=== PATIENT | female | born 1985 | race Caucasian/White ===

== ENCOUNTER 2019-06-21 13:06 | Emergency (ER) | payer SELFPAY ==
[2019-06-21] MEDS ORDERED: ACETAMINOPHEN 500 MG TABLET (FP) PO ONE (13:11)
--- NOTE | 2019-06-21 13:11 | PDOC ---
Rapid Medical Evaluation Time Seen by Provider: 06/21/19 13:09 Medical Evaluation: 06/21/19 13:10 HPI: Headache PE:No gross deficits ORDERS: U Preg Tylenol Discharge Disposition - Diagnosis Headache - Referrals - Patient Instructions - Post Discharge Activity
[2019-06-21 13:13] VITALS: TEMP 97.5; BMI 23.6
[2019-06-21] MEDS ORDERED: ACETAMINOPHEN 325 MG TABLET (FP) ONE (13:22)
--- NOTE | 2019-06-21 13:27 | PDOC ---
Attending Attestation - Resident Resident Name: PapitoRamya - ED Attending Attestation I have performed the following: I have examined & evaluated the patient, The case was reviewed & discussed with the resident, I agree w/resident's findings & plan, Exceptions are as noted - HPI HPI: 06/21/19 13:51 Ms Galvan is a 34-year-old female who is otherwise healthy who presents emergency department with right-sided headache Patient states she was in her usual state of health Had a gradual onset of a right-sided headache last night Patient fell asleep last night, but awoke with worsening of her headache Patient did not take any pain medication No fevers or chills No head trauma Patient feels nauseous no vomiting (+) Photophobia Patient has a history of similar headache several years ago, status post imaging , unable to give details about the - Physicial Exam PE: 06/21/19 14:04 GENERAL: The patient is in no acute distress, appears uncomfortable, crying. HEENT: Right eye appears swollen to me, 20/20 Bilaterally, no temporal tenderness to palpation, Ears normal, nares patent, oropharynx clear without exudates. Moist mucous membranes. NECK: Normal range of motion, supple, no nuchal rigidity LUNGS: Breath sounds equal, clear to auscultation bilaterally. No wheezes, and no crackles. HEART:Regular rate and rhythm, normal S1 and S2 without murmur, rub or gallop. ABDOMEN: Soft, nontender, normoactive bowel sounds. EXTREMITIES: Normal range of motion, no edema. NEUROLOGICAL: Cranial nerves II through XII grossly intact. Normal speech. No focal neurological deficits. SKIN: Warm, Dry, normal turgor, no rashes or lesions noted. 06/22/19 09:37 - Medical Decision Making 06/21/19 14:07 34-year-old female presenting to the emergency department with a complaint of headache Although patient has had a similar headache in the past, this was more severe and long-lasting Patient was given Tylenol p.o. in RME Differential diagnosis includes but is not limited to: Tension, migraine, Temporal Arteritis, SDH/SAH, Intracranial mass, Will do: Kaylie Summers EKG IVF CT head Labs Re Assess 06/21/19 14:59 Laboratory Tests 06/21/19 06/21/19 06/21/19 13:40 13:40 14:27 WBC 5.6 Hgb 12.7 Hct 37.6 Plt Count 224 BUN 20.1 H Creatinine 0.8 Serum , Qual Negative 06/21/19 15:50 CT head: No mass lesion, gross acute infarct, or intracranial hemorrhage. No shift of the midline structures. Normal sized pituitary gland. No evidence of sinusitis Pt pain has improved Pain resolved Will discharge to home Pt asked to return to the ER for any other concerns or complaints
[2019-06-21] MEDS ORDERED: SODIUM CHLORIDE 1,000 ML IV STA (13:28)
[2019-06-21] MEDS ORDERED: METOCLOPRAMIDE HCL INJECTION 10 MG/2 ML VIAL IVPUSH ONE (13:28)
[2019-06-21] MEDS ORDERED: METOCLOPRAMIDE HCL INJECTION 10 MG/2 ML VIAL ONE (13:36)
[2019-06-21 13:52] LABS: BASO % 0.3 % (0-2.0); EOS % 0.8 % (0-4.5); HEMATOCRIT 37.6 % (32.4-45.2); HEMOGLOBIN 12.7 GM/dL (10.7-15.3); LYMPH % 34.9 % (8-40); MCH 30.9 pg (25.7-33.7); MCHC 33.9 g/dl (32.0-36.0); MEAN CELL VOLUME 91.3 fl (80-96); MEAN PLT VOLUME 8.4 fl (7.5-11.1); MONO % 7.2 % (3.8-10.2); NEUT % 56.8 % (42.8-82.8); PLATELET COUNT 224 K/MM3 (134-434); RBC 4.12 M/mm3 (3.60-5.2); RDW 13.7 % (11.6-15.6); WHITE BLOOD COUNT 5.6 K/mm3 (4.0-10.0)
--- NOTE | 2019-06-21 14:01 | PDOC ---
History of Present Illness - General Chief Complaint: Headache Stated Complaint: HEADACHE/NAUSEA Time Seen by Provider: 06/21/19 13:09 - History of Present Illness Initial Comments: 06/21/19 13:56 34 y/o F no significant medical hx presents to the ED with left sided headache since yesterday night. Headache began gradually and she was able to go to sleep. she woke up this morning with increased throbbing pain on her left side. Pain is 10/10 radiates down her neck. She took nothing for pain at home. Pain is exacerbated by light and noise. She denies any head trauma, fevers, chills, neck stiffness/tenderness, eye pain, blurry vision, weakness,numbness, tingling. Past History - Past Medical History Allergies/Adverse Reactions: Allergies Allergy/AdvReac Type Severity Reaction Status Date / Time No Known Allergies Allergy Verified 06/21/19 13:13 COPD: No - Psycho Social/Smoking Cessation Hx Smoking History: Never smoked Information on smoking cessation initiated: No Hx Alcohol Use: No Drug/Substance Use Hx: No Review of Systems - Review of Systems Constitutional: No: Chills, Fever HEENTM: Yes: Tearing. No: Eye Pain, Blurred Vision Respiratory: No: Cough, Shortness of Breath Cardiac (ROS): No: Chest Pain, Syncope ABD/GI: Yes: Nausea, Vomiting : No: Burning, Dysuria Musculoskeletal: No: Back Pain, Joint Pain Integumentary: No: Bruising, Change in Color Neurological: Yes: Headache Hematologic/Lymphatic: No: Anemia, Blood Clots *Physical Exam - Vital Signs Last Vital Signs Temp Pulse Resp BP Pulse Ox 97.5 F L 60 19 129/103 H 100 06/21/19 13:10 06/21/19 13:10 06/21/19 13:10 06/21/19 13:10 06/21/19 13:10 - Physical Exam Comments: 06/21/19 14:00 PE: GENERAL: Awake, alert, and fully oriented, uncomfortable and in tears HEAD: No signs of trauma, normocephalic, atraumatic EYES: PERRLA, EOMI, sclera anicteric, conjunctiva clear ENT: Auricles normal inspection, hearing grossly normal, nares patent, oropharynx clear without exudates. Moist mucosa NECK: Normal ROM, supple, no lymphadenopathy, JVD, or masses LUNGS: No distress, speaks full sentences, clear to auscultation bilaterally HEART: Regular rate and rhythm, normal S1 and S2, no murmurs, rubs or gallops, peripheral pulses normal and equal bilaterally. ABDOMEN: Soft, nontender, normoactive bowel sounds. No guarding, no rebound. No masses EXTREMITIES : Normal inspection, Normal range of motion, no edema. No clubbing or cyanosis NEUROLOGICAL: Cranial nerves II through XII grossly intact. Normal speech, normal gait, no focal sensorimotor deficits SKIN: Warm, Dry, normal turgor, no rashes or lesions noted ED Treatment Course - LABORATORY CBC & Chemistry Diagram: 06/21/19 13:40 06/21/19 13:40 - ADDITIONAL ORDERS Additional order review: 06/21/19 13:40 RBC 4.12 MCV 91.3 MCHC 33.9 RDW 13.7 MPV 8.4 Neutrophils % 56.8 Lymphocytes % 34.9 Monocytes % 7.2 Eosinophils % 0.8 Basophils % 0.3 - Medications Given in the ED: ED Medications Discontinued Medications Generic Name Dose Route Start Last Admin Trade Name Freq PRN Reason Stop Dose Admin Acetaminophen 1,000 mg 06/21/19 13:11 06/21/19 13:15 Tylenol - PO 06/21/19 13:12 1,000 mg ONCE ONE Administration Diphenhydramine HCl 25 mg 06/21/19 13:28 06/21/19 13:35 Benadryl Injection - IVPB 06/21/19 13:29 25 mg ONCE ONE Administration Metoclopramide HCl 10 mg 06/21/19 13:28 06/21/19 13:40 Reglan Injection - IVPUSH 06/21/19 13:29 10 mg ONCE ONE Administration Medical Decision Making - Medical Decision Making 06/21/19 14:03 34 y/o F no significant medical hx presents to the ED with left sided headache since yesterday night cbc, cmp, test, ekg, head CT w/o contrast Meds: Reglan, tylenol, benadryl 06/21/19 14:54 Labs unremarkable so far ESR pending Patient reassessed and feeling better. 06/21/19 15:[address] w/o contrast. no evidence of a focal intracranial lesion or hemorrhage seen. Discharge - Discharge Information Problems reviewed: Yes Clinical Impression/Diagnosis: Headache Qualifiers: Headache type: unspecified Headache chronicity pattern: acute headache Intractability: not intractable Qualified Code(s): R51 - Headache Condition: Improved Disposition: HOME - Admission No - Follow up/Referral Referrals: Nolberto Hernandez MD [Staff Physician] - [facility] [Provider Group] - Patient Discharge Instructions Patient Printed Discharge Instructions: DI for Migraine Additional Instructions: You were seen in the the ER for a headache. Your labs an head CT were normal. follow-up with PCP in 1-2 days and to return to the ED for worsening of headache or any other concerns - Post Discharge Activity
[2019-06-21 14:23] LABS: ALBUMIN 3.8 g/dl (3.4-5.0); ALK PHOS 33 U/L (45-117); ANION GAP 8 MMOL/L (8-16); BILIRUBIN,TOTAL 0.6 mg/dL (0.2-1); BLOOD UREA NITROGEN 20.1 mg/dL (7-18); CALCIUM 9.2 mg/dL (8.5-10.1); CHLORIDE 107 mmol/L (98-107); CO2 26 mmol/L (21-32); CREATININE 0.8 mg/dL (0.55-1.3); GLUCOSE,RANDOM 91 mg/dL (74-106); SGOT/AST 19 U/L (15-37); SGPT/ALT 27 U/L (13-61); SODIUM 141 mmol/L (136-145); TOT PROT 7.4 g/dl (6.4-8.2)
[2019-06-21 16:15] VITALS: BP 122/86; PULSE 65
--- NOTE | 2019-06-22 14:23 | EKG ---
Test Reason : Blood Pressure : / mmHG Vent. Rate : 073 BPM Atrial Rate : 073 BPM P-R Int : 190 ms QRS Dur : 080 ms QT Int : 390 ms P-R-T Axes : 057 018 017 degrees QTc Int : 429 ms NORMAL SINUS RHYTHM NO PREVIOUS ECGS AVAILABLE Confirmed by TEODORO ANGULO MD ([id number]) on 06/22/2019 2:22:50 PM Referred By: Confirmed By:TEODORO ANGULO MD
== END 2019-06-21 16:10 | disposition home or self-care (01) ==
LOC: JER 13:06
PROC: 3E033NZ Introduction of Analgesics, Hypnotics, Sedatives into Peripheral Vein, Percutaneous Approach (ICD-10-PCS; principal; 2019-06-21)
PROC: 3E033GC Introduction of Other Therapeutic Substance into Peripheral Vein, Percutaneous Approach (ICD-10-PCS; 2019-06-21)
DX: R51 Headache (principal)
CPT/HCPCS: 36415; 70450-TC; 80053; 84703; 85025; 85651; 86140; 93005; 93010; 99284-25; J7030

== ENCOUNTER 2020-12-11 16:01 | Emergency (ER) | payer OTHER ==
[2020-12-11 16:15] VITALS: BP 125/90; PULSE 87; TEMP 98; BMI 23.9
[2020-12-11] MEDS ORDERED: KETOROLAC TROMETHAMINE 30 MG/1 ML VIAL IM ONE (16:55)
[2020-12-11] MEDS ORDERED: diazePAM 5 MG TABLET PO ONE (16:56)
[2020-12-11] MEDS ORDERED: KETOROLAC TROMETHAMINE 30 MG/1 ML VIAL ONE (17:08)
[2020-12-11] MEDS ORDERED: diazePAM 5 MG TABLET ONE (17:08)
== END 2020-12-11 17:33 | disposition home or self-care (01) ==
LOC: JER 16:01
PROC: 3E0233Z Introduction of Anti-inflammatory into Muscle, Percutaneous Approach (ICD-10-PCS; principal; 2020-12-11)
DX: M54.2 Cervicalgia (principal); M79.652 Pain in left thigh
CPT/HCPCS: 99284-25

== ENCOUNTER 2022-05-30 00:58 | Emergency (ER) | payer OTHER ==
[2022-05-30 01:07] VITALS: BP 118/85; PULSE 88; RESP 20; TEMP 98.2; BMI 24.6
[2022-05-30 02:33] LABS: EPI CELLS 21 /uL (0-25.1); HYALINE CASTS 0 /uL (0-3.1); PH,URINE 5.5 (5.0-8.0); URINE APPEARANCE CLOUDY; URINE BACTERIA 2926 /uL (0-1359); URINE BILIRUBIN NEGATIVE (NEGATIVE); URINE COLOR YELLOW; URINE GLUCOSE (UA) NEGATIVE (NEGATIVE); URINE KETONE NEGATIVE (NEGATIVE); URINE LEUK ESTERASE 3+ (NEGATIVE); URINE NITRITE NEGATIVE (NEGATIVE); URINE PROTEIN 3+ (NEGATIVE); URINE RBC 857 /uL (0-23.9); URINE UROBILINOGEN 0.2 mg/dL (0.2-1.0); URINE WBC 4997 /uL (0-25.8)
[2022-05-30] MEDS ORDERED: KETOROLAC TROMETHAMINE 30 MG/1 ML VIAL IVPUSH ONE (03:22)
[2022-05-30] MEDS ORDERED: PHENAZOPYRIDINE HCL 100 MG TABLET (FP) PO ONE (03:33)
[2022-05-30] MEDS ORDERED: PHENAZOPYRIDINE HCL 100 MG TABLET (FP) ONE (04:19)
[2022-05-30] MEDS ORDERED: KETOROLAC TROMETHAMINE 30 MG/1 ML VIAL ONE (04:19)
[2022-05-30] MEDS ORDERED: CEFTRIAXONE 1 GM/50 ML BAG ONE (04:20)
[2022-05-30 05:21] LABS: BASO % 0.1 % (0-2.0); EOS % 0.1 % (0-4.5); HEMATOCRIT 39.4 % (32.4-45.2); HEMOGLOBIN 13.2 GM/dL (10.7-15.3); LYMPH % 10.7 % (8-40); MCH 30.2 pg (25.7-33.7); MCHC 33.5 g/dl (32.0-36.0); MEAN CELL VOLUME 90.3 fl (80-96); MEAN PLT VOLUME 8.6 fl (7.5-11.1); MONO % 4.5 % (3.8-10.2); NEUT % 84.6 % (42.8-82.8); PLATELET COUNT 252 10^3/uL (134-434); RBC 4.36 M/mm3 (3.60-5.2); WHITE BLOOD COUNT 13.9 K/mm3 (4.0-10.0)
[2022-05-30 05:22] LABS: ALBUMIN 4.1 g/dl (3.4-5.0); BLOOD UREA NITROGEN 15.5 mg/dL (7-18); CALCIUM 10.3 mg/dL (8.5-10.1)
[2022-05-30 05:25] LABS: CREATININE 0.8 mg/dL (0.55-1.3)
[2022-05-30 05:27] LABS: BILIRUBIN,TOTAL 0.6 mg/dL (0.2-1); TOT PROT 7.8 g/dl (6.4-8.2)
== END 2022-05-30 07:30 | disposition home or self-care (01) ==
LOC: JER 00:58
PROC: 3E03329 Introduction of Other Anti-infective into Peripheral Vein, Percutaneous Approach (ICD-10-PCS; principal; 2022-05-30)
PROC: 3E0333Z Introduction of Anti-inflammatory into Peripheral Vein, Percutaneous Approach (ICD-10-PCS; 2022-05-30)
DX: N12 Tubulo-interstitial nephritis, not specified as acute or chronic (principal)
CPT/HCPCS: 36415; 80053; 81003; 85025; 87086; 87186; 99284-25

== ENCOUNTER 2023-05-27 01:40 | Emergency (ER) | payer OTHER ==
[2023-05-27 01:51] VITALS: BP 128/88; PULSE 80; RESP 18; TEMP 98.2; BMI 56.6
[2023-05-27] MEDS ORDERED: ONDANSETRON 4 MG/2 ML VIAL IVPUSH ONE (02:23)
[2023-05-27] MEDS ORDERED: SODIUM CHLORIDE 0.9% 500 ML INFUS.BAG IV ONE (02:23)
[2023-05-27] MEDS ORDERED: FAMOTIDINE 20 MG/50 ML IVPB 20 MG/50 ML MG IVPB ONE ×2 (02:23→02:54)
[2023-05-27] MEDS ORDERED: ONDANSETRON 4 MG/2 ML VIAL ONE (02:54)
[2023-05-27 03:28] LABS: BASO % 0.4 % (0-2.0); EOS % 0.7 % (0-4.5); HEMATOCRIT 40.6 % (32.4-45.2); HEMOGLOBIN 13.9 GM/dL (10.7-15.3); MCH 30.5 pg (25.7-33.7); MCHC 34.3 g/dl (32.0-36.0); MEAN CELL VOLUME 89.1 fl (80-96); MONO % 6.7 % (3.8-10.2); NEUT % 73.2 % (42.8-82.8); PLATELET COUNT 275 10^3/uL (134-434); RBC 4.56 M/mm3 (3.60-5.2); RDW 13.3 % (11.6-15.6); WHITE BLOOD COUNT 8.7 K/mm3 (4.0-10.0)
[2023-05-27 03:39] LABS: POTASSIUM 4.2 mmol/L (3.5-5.1)
[2023-05-27 03:41] LABS: CALCIUM 9.5 mg/dL (8.5-10.1)
[2023-05-27 03:42] LABS: ALBUMIN 4.3 g/dl (3.4-5.0); BLOOD UREA NITROGEN 19.8 mg/dL (7-18); MAGNESIUM 2.1 mg/dL (1.8-2.4)
[2023-05-27 03:45] LABS: CREATININE 0.8 mg/dL (0.55-1.3)
[2023-05-27 03:46] LABS: BILIRUBIN,TOTAL 0.6 mg/dL (0.2-1); TOT PROT 8.1 g/dl (6.4-8.2)
== END 2023-05-27 05:37 | disposition home or self-care (01) ==
LOC: JER 01:40
PROC: 3E033GC Introduction of Other Therapeutic Substance into Peripheral Vein, Percutaneous Approach (ICD-10-PCS; principal; 2023-05-27)
PROC: 3E033GC Introduction of Other Therapeutic Substance into Peripheral Vein, Percutaneous Approach (ICD-10-PCS; 2023-05-27)
DX: R11.2 Nausea with vomiting, unspecified (principal); R19.7 Diarrhea, unspecified; R10.84 Generalized abdominal pain; Z20.822 Contact with and (suspected) exposure to COVID-19
CPT/HCPCS: 0241U-QW; 36415; 80053; 83690; 83735; 84703; 85025; 99284-25

== ENCOUNTER 2023-08-30 10:50 | Emergency (ER) | payer OTHER ==
[2023-08-30 10:55] VITALS: BP 119/82; PULSE 83; RESP 20; TEMP 98.3; BMI 28.0
[2023-08-30] MEDS ORDERED: ACETAMINOPHEN 500 MG TABLET (FP) ONE (12:07)
[2023-08-30] MEDS ORDERED: KETOROLAC TROMETHAMINE 30 MG/1 ML VIAL ONE (12:07)
[2023-08-30] MEDS ORDERED: LIDOCAINE 4% PATCH TP ONE (12:07)
[2023-08-30] MEDS: KETOROLAC TROMETHAMINE 30 MG/1 ML VIAL IM ONE (12:17)
[2023-08-30] MEDS: LIDOCAINE 4% PATCH TP ONE (12:17)
[2023-08-30] MEDS: ACETAMINOPHEN 325 MG TABLET (FP) PO ONE (12:18)
[2023-08-30 12:32] LABS: URINE APPEARANCE CLEAR; URINE BILIRUBIN NEGATIVE (NEGATIVE); URINE COLOR YELLOW; URINE GLUCOSE (UA) NEGATIVE (NEGATIVE); URINE KETONE NEGATIVE (NEGATIVE); URINE LEUK ESTERASE NEGATIVE (NEGATIVE); URINE NITRITE NEGATIVE (NEGATIVE); URINE PROTEIN NEGATIVE (NEGATIVE); URINE UROBILINOGEN 0.2 mg/dL (0.2-1.0)
== END 2023-08-30 16:08 | disposition home or self-care (01) ==
LOC: JER 10:50
PROC: 3E0233Z Introduction of Anti-inflammatory into Muscle, Percutaneous Approach (ICD-10-PCS; principal; 2023-08-30)
DX: M54.50 Low back pain, unspecified (principal)
CPT/HCPCS: 81003; 84703; 87086; 96372; 99284-25

== ENCOUNTER 2023-09-12 14:29 | Emergency (ER) | payer OTHER ==
[2023-09-12 14:36] VITALS: BP 95/62; PULSE 100; RESP 20; TEMP 97.6; BMI 26.4
[2023-09-12] MEDS ORDERED: KETOROLAC TROMETHAMINE 15 MG/ML VIAL ONE (14:53)
[2023-09-12] MEDS ORDERED: ONDANSETRON 4 MG/2 ML VIAL ONE (14:53)
[2023-09-12] MEDS: ONDANSETRON 4 MG/2 ML VIAL IVPUSH ONE (15:08)
[2023-09-12] MEDS: SODIUM CHLORIDE 0.9% 500 ML INFUS.BAG IV ONE (15:08)
[2023-09-12] MEDS: KETOROLAC TROMETHAMINE 15 MG/ML VIAL IVPUSH ONE (15:09)
[2023-09-12 15:36] LABS: HEMATOCRIT 40.3 % (32.4-45.2); HEMOGLOBIN 13.4 GM/dL (10.7-15.3); MCH 30.4 pg (25.7-33.7); MCHC 33.3 g/dl (32.0-36.0); MEAN CELL VOLUME 91.1 fl (80-96); MEAN PLT VOLUME 8.6 fl (7.5-11.1); PLATELET COUNT 240 10^3/uL (134-434); RBC 4.42 M/mm3 (3.60-5.2); RDW 13.3 % (11.6-15.6); WHITE BLOOD COUNT 11.7 K/mm3 (4.0-10.0)
[2023-09-12 15:52] LABS: POTASSIUM 3.8 mmol/L (3.5-5.1)
[2023-09-12 15:55] LABS: ALBUMIN 3.7 g/dl (3.4-5.0); BLOOD UREA NITROGEN 15.6 mg/dL (7-18); CALCIUM 8.9 mg/dL (8.5-10.1); MAGNESIUM 1.9 mg/dL (1.8-2.4)
[2023-09-12 15:58] LABS: CREATININE 0.7 mg/dL (0.55-1.3); PHOSPHOROUS 3.2 mg/dL (2.5-4.9)
[2023-09-12 16:00] LABS: ANISOCYTOSIS 0; BILIRUBIN,TOTAL 0.6 mg/dL (0.2-1); HELMET CELLS 0; HOWELL-JOLLY BODIES 0; MACROCYTOSIS 0; OVALOCYTE 0; ROULEAU 0; SICKELED CELLS 0; TARGET CELLS 0; TEAR DROP CELLS 0; TOT PROT 7.5 g/dl (6.4-8.2); TOXIC GRANULATION 0
[2023-09-12] MEDS ORDERED: ACETAMINOPHEN 500 MG TABLET (FP) ONE (16:47)
[2023-09-12] MEDS: ACETAMINOPHEN 500 MG TABLET (FP) PO ONE (16:54)
[2023-09-12 16:57] LABS: EPI CELLS >36 /uL (0-25.1); HYALINE CASTS 0 /uL (0-3.1); URINE APPEARANCE CLEAR; URINE BACTERIA 783 /uL (0-1359); URINE BILIRUBIN NEGATIVE (NEGATIVE); URINE COLOR YELLOW; URINE GLUCOSE (UA) NEGATIVE (NEGATIVE); URINE KETONE TRACE (NEGATIVE); URINE LEUK ESTERASE 1+ (NEGATIVE); URINE NITRITE NEGATIVE (NEGATIVE); URINE PROTEIN NEGATIVE (NEGATIVE); URINE RBC 15 /uL (0-23.9); URINE UROBILINOGEN 0.2 mg/dL (0.2-1.0); URINE WBC 41 /uL (0-25.8)
[2023-09-12 17:01] LABS: HCG,QUALITATIVE URINE NEGATIVE
== END 2023-09-12 17:31 | disposition home or self-care (01) ==
LOC: JER 14:29
PROC: 3E0333Z Introduction of Anti-inflammatory into Peripheral Vein, Percutaneous Approach (ICD-10-PCS; principal; 2023-09-12)
PROC: 3E033GC Introduction of Other Therapeutic Substance into Peripheral Vein, Percutaneous Approach (ICD-10-PCS; 2023-09-12)
DX: K52.9 Noninfective gastroenteritis and colitis, unspecified (principal); R11.10 Vomiting, unspecified; Z20.822 Contact with and (suspected) exposure to COVID-19
CPT/HCPCS: 0241U-QW; 36415; 80053; 81003; 83690; 83735; 84100; 84703; 85025; 87086; 96374; 96375; 99284-25